=== PATIENT | female | born 1955 | race Caucasian/White ===

== ENCOUNTER 2025-08-26 20:30 | Observation (INO) ==
[2025-08-26 20:57] VITALS: BMI 22.8
--- NOTE | 2025-08-26 21:15 | DR.GENAD ---
HPI Time Seen Time Seen by Provider: 08/26/25 21:11 PCP Primary Care Physician: Dr. Avila Complaint/Symptoms Chief Complaint Doctors Comments: 69-year-old female to ED from home POV. Patient says she does not feel right believes it is her blood thinners she was started prasugrel 10 mg approximately 3 weeks ago. Complaints of dizziness weakness somnolence. Patient says she does not know if she has had a syncopal episode. She states she was washing the [employer] game and all of a sudden it was over. She has been feeling weak and confused Chief Complaint:: Patient brought in er via WC with complaints of experiencing "blood thinner symptoms" x3 weeks. Pt states she started Prasugrel 10mg daily 1 month ago. pt states since starting the blood thinner she has been cold, sleeping all day and having imbalance issues. COVID-19 Coronavirus risk:travel/contact w/high risk person: No Has patient experienced Coronavirus symptoms: No Source History Provided: Patient Mode of Arrival Mode of Arrival: Wheelchair Timing Onset of Chief Complaint: 08/12/25 PMH PMH Past Medical History: Yes Past Medical History: Arthritis, COPD, Diabetes, Dyslipidemia and Hypothyroidism Past Medical History Comment: Neuropathy Past Surgical History: Yes Surgical History: Appendectomy Past Surgical History Comment: Tubal ligation, back surgery Family History History of Family Medical Conditions: Yes Family Medical History: Diabetes Mellitus, Cancer, [place], Coronary Artery Disease and Hypertension Social History Does patient currently use any type of tobacco product: Yes Have you used tobacco products in the last 12 months: Yes Type of Tobacco Use: Cigarettes Does any household member use tobacco: Yes Alcohol Use: None Do you use any recreational Drugs:: No Lives With: Spouse Lives Where: Home Travel Risk Coronavirus risk:travel/contact w/high risk person: No Has patient experienced Coronavirus symptoms: No Infectious screening Have you traveled outside the country in the last 6 months?: No Isolation: Standard ROS Review of Systems Constitutional: No Symptoms Reported Eyes: No Symptoms Reported ENTM: No Symptoms Reported Respiratoy: No Symptoms Reported Cardiovascular: No Symptoms Reported Gastrointestinal/Abdominal: No Symptoms Reported Genitourinary: No Symptoms Reported Neurological: Weakness, Dizziness and Other (Somnolence) Musculoskeletal: No Symptoms Reported Integumentary: No Symptoms Reported Hematologic/Lymphatic: No Symptoms Reported Endocrine: No Symptoms Reported Psychiatric: No Symptoms Reported All Other Systems: Reviewed and Negative PE Vital Signs Vitals: Vital Signs Temperature 98.0 F Pulse Rate 107 Respiratory Rate 20 Blood Pressure 112/59 O2 Sat by Pulse Oximetry 94 General Limitations: No Limitations General Appearance: Alert and In No Apparent Distress Head Head Exam: Normal Inspection Eyes Eye exam: Normal Appearance ENT ENT Exam: Normal Exam External Ear Exam: Normal External Inspection TM/Canal Exam: Bilateral: Normal Nose Exam: Normal Nose Exam Mouth Exam: Normal Inspection Throat Exam: Normal Inspection Neck Neck Exam: Normal Inspection Chest Chest Inspection: Normal Inspection Respiratory Respiratory Exam: Normal Lung Sounds Bilat Respiratory Exam: Bilateral: Clear to Auscultation Cardiovascular Cardiovascular Exam: Regular Rate and Normal Rhythm Abdominal Exam Abdominal Exam: Normal Inspection, Normal Bowel Sounds and Soft Extremities Extremities Exam: Normal Inspection Back Back Exam: Normal Inspection Neurologic Neurological Exam: Alert and Oriented X3 Psychiatric Psychiatric Exam: Normal Affect and Normal Mood Skin Skin Exam: Warm, Dry, Intact and Normal Color COURSE Treatment Treatment: Discussed findings with patient and family. Agreed to admission discussed with Dr. Burnett Will admit ROR Labs Reviewed 08/26/25 21:24 08/26/25 21:24 Laboratory: WBC 8.7 X10^3/uL (3.6-10.0) 08/26/25 21:24 RBC 3.90 X10^6/uL (3.5-5.4) 08/26/25 21:24 Hgb 8.9 g/dL (12.0-16.0) L 08/26/25 21:24 Hct 27.8 % (36.0-47.0) L 08/26/25 21:24 MCV 71.4 fL (80.0-100.0) L 08/26/25 21:24 MCH 22.9 pg (27.0-34.0) L 08/26/25 21:24 MCHC 32.0 g/dL (33.0-35.0) L 08/26/25 21:24 RDW 18.3 % (11.6-16.5) H 08/26/25 21:24 Plt Count 422 X10^3/uL (150.0-450.0) 08/26/25 21:24 MPV 6.6 fL (7.4-11.0) L 08/26/25 21:24 Neut % (Auto) 71.6 % (42.0-75.0) 08/26/25 21:24 Lymph % (Auto) 15.3 % (21.0-51.0) L 08/26/25 21:24 [place] % (Auto) 12.3 % (0.0-13.0) 08/26/25 21:24 Eos % (Auto) 0.1 % (0.9-2.9) L 08/26/25 21:24 Baso % (Auto) 0.7 % (0.2-1.0) 08/26/25 21:24 Neut # (Auto) 6.3 x10^3/uL (2.2-4.8) H 08/26/25 21:24 Lymph # (Auto) 1.3 X10^3/uL (1.3-2.9) 08/26/25 21:24 [place] # (Auto) 1.1 x10^3/uL (0.3-0.8) H 08/26/25 21:24 Eos # (Auto) 0.0 x10^3/uL (0.0-0.2) 08/26/25 21:24 Baso # (Auto) 0.1 X10^3/uL (0.0-0.1) 08/26/25 21:24 Absolute Nucleated RBC 0.2 /100WBC 08/26/25 21:24 PT 14.0 SECONDS (11.8-14.3) 08/26/25 21:24 INR Target Range - 08/26/25 21:24 INR 1.06 (0.8-1.3) 08/26/25 21:24 APTT 33.4 SECONDS (22.9-36.5) 08/26/25 21:24 PTT Comment - 08/26/25 21:24 Sodium 128 mmol/L (136-145) L 08/26/25 21:24 Corrected Sodium TNP 08/26/25 21:24 Potassium 3.1 mmol/L (3.5-5.1) L 08/26/25 21:24 Chloride 90 mmol/L (98-107) L 08/26/25 21:24 Carbon Dioxide 28.6 mmol/L (21-32) 08/26/25 21:24 BUN 7 mg/dL (7-18) 08/26/25 21:24 Creatinine 0.86 mg/dL (0.55-1.02) 08/26/25 21:24 Est GFR (MDRD) Af Amer > 60 (>60) 08/26/25 21:24 Est GFR (MDRD) Non-Af > 60 (>60) 08/26/25 21:24 Glucose 102 mg/dL (65-99) H 08/26/25 21:24 Calcium 8.9 mg/dL (8.5-10.1) 08/26/25 21:24 Corrected Calcium 9.7 mg/dL (8.5-10.1) 08/26/25 21:24 Total Bilirubin 0.40 mg/dL (0.2-1.0) 08/26/25 21:24 AST 16 Units/L (15-37) 08/26/25 21:24 ALT 11 Units/L (12-78) L 08/26/25 21:24 Alkaline Phosphatase 114 Units/L (46-116) 08/26/25 21:24 Troponin I High Sens 21.9 ng/L (4.0-60.0) 08/26/25 21:24 Total Protein 7.0 g/dL (6.4-8.2) 08/26/25 21:24 Albumin 3.0 g/dL (3.4-5.0) L 08/26/25 21:24 Globulin 4.0 g/dL (2.5-4.5) 08/26/25 21:24 Albumin/Globulin Ratio 0.8 Ratio (1.1-2.1) L 08/26/25 21:24 Specimen Type Clean catch urine 08/26/25 21:47 Urine Color Yellow (YELLOW) 08/26/25 21:47 Urine Appearance Cloudy (CLEAR) 08/26/25 21:47 Urine pH 5.0 (5.0 - 8.0) 08/26/25 21:47 Ur Specific [place] 1.015 (1.000-1.030) 08/26/25 21:47 Urine Protein 2+ (NEGATIVE) 08/26/25 21:47 Urine Glucose (UA) Negative (NEGATIVE) 08/26/25 21:47 Urine Ketones Negative (NEGATIVE) 08/26/25 21: Urine Blood Negative (NEGATIVE) 08/26/25 21: Urine Nitrite Negative (NEGATIVE) 08/26/25 21:47 Urine Bilirubin Negative (NEGATIVE) 08/26/25 21:47 Urine Urobilinogen Normal (NORMAL) 08/26/25 21:47 Ur Leukocyte Esterase 2+ (NEGATIVE) 08/26/25 21:47 Urine RBC 3-5 /HPF (0-3) A 08/26/25 21:47 Urine WBC 10-20 /HPF (0-5) A 08/26/25 21:47 Ur Squamous Epith Cells Moderate /HPF (NEGATIVE) 08/26/25 21:47 Urine Bacteria 3+ /HPF (NEGATIVE) 08/26/25 21:47 Ur Culture Indicated? Yes/culture set up 08/26/25 21:47 Urine Opiates Screen Negative (NEG=<300) 08/26/25 21:47 Urine Methadone Screen Negative (NEG=<300) 08/26/25 21:47 Ur Barbiturates Screen Negative (NEG=<200) 08/26/25 21:47 Ur Phencyclidine Scrn Negative (NEG=<25) 08/26/25 21:47 Ur Amphetamines Screen Negative (NEG=<1000) 08/26/25 21:47 U Benzodiazepines Scrn Negative (NEG=<200) 08/26/25 21:47 Urine Cocaine Screen Negative (NEG=<300) 08/26/25 21:47 U Marijuana (THC) Screen Negative (NEG=<50) 08/26/25 21:47 XRAY X-ray Results: AUSTIN [id number] Allergy/Adv: Penicillins Name: AUSTIN TONY : 1955 Sex: F Location: Order Number(s): [id number] Procedure(s):BRAIN CT W/O CON Ordering Physician: Everardo Saba Primary Care: VAMSHI AVILA Service Date: 08/26/25 Service Time: 2114 EXAM: CT HEAD WITHOUT CONTRAST HISTORY: Confusion; COMPARISON: CT dated August 09, 2022. TECHNIQUE: Axial CT images were obtained through the brain without contrast. Coronal and sagittal reformations were performed. All CT scans at this facility use dose modulation, iterative reconstruction, and/or weight based dosing when appropriate to reduce radiation dose to as low as reasonably achievable. FINDINGS: BRAIN: No evidence for acute bleed. Wilkes-white matter differentiation is preserved.Decreased attenuation within periventricular white matter and centrum semiovale is nonspecific but would be consistent with chronic small-vessel ischemic changes. Ventricles have normal size and contour. No shift of midline structures. Basilar cisterns are preserved. No cerebellar tonsillar ectopia. No evidence for acute calvarial findings. MASTOID AIR CELLS: Visualized mastoid air cells are well aerated. PARANASAL SINUSES: Visualized portions of the paranasal sinuses are well aerated. ORBITS: No evidence for acute findings. IMPRESSION: No evidence for acute intracranial pathology. Decreased attenuation within periventricular white matter and centrum semiovale is nonspecific but would be consistent with chronic small-vessel ischemic changes. If there is clinical concern for acute ischemic event or other intracranial pathology, then consider follow-up MRI brain. THIS IS AN ELECTRONICALLY VERIFIED FINAL REPORT 08/26/2025 9:49 PM - Electronically signed by Maicol Escalante DO Opioid Opioid Risk Tool Age (David box if 16-45): No History of Preadolescent Sexual Abuse: No Total: 0 Total Score Risk Category: Low Risk Copyright: Bill SHEEHAN predicting aberrant behaviors Discharge Plan Diagnosis Discharge Problem: Weakness, Hyponatremia, Anemia Discharge Plan Patient Disposition: ADMITTED INPATIENT Condition: Stable Prescriptions: No Action cyclobenzaprine 10 mg tablet 10 mg PO TID metformin 500 mg tablet 500 mg PO TID bupropion HCl 150 mg tablet sustained-release 12 hr 150 mg PO BID citalopram 40 mg tablet 40 mg PO QDAY meloxicam 15 mg tablet 15 mg PO QDAY gabapentin 400 mg capsule 800 mg PO QID famotidine 20 mg tablet 20 mg PO BID oxycodone-acetaminophen 10-325 mg tablet 1 tab PO QID PRN levothyroxine 50 mcg tablet 50 mcg PO QDAY simvastatin 20 mg tablet 20 mg PO QPM trazodone 150 mg tablet 150 mg PO QPM glimepiride 4 mg tablet 4 mg PO QDAY montelukast 10 mg tablet 10 mg PO QDAY sulfamethoxazole-trimethoprim [Bactrim DS] 800-160 mg tablet 1 tab PO BID Qty: 20 0RF Health Concerns: Post Hospitalization: new medications and changes needed to prevent readmission or further decline. Pt educated and given instructions on all concerns. Plan of Treatment: Continue with present treatment and follow up plan. Pt is to keep follow up appointment as instructed and take medications as ordered. Follow ups/Referrals Follow ups/Referrals: VAMSHI AVILA [Primary Care Provider, Unknown] - 3 days Instructions Print Language: SURINAMESE
[2025-08-26 21:32] LABS: MEAN PLATELET VOLUME 6.6 fL (7.4-11.0); RED CELL DISTRIBUTION WIDTH 18.3 % (11.6-16.5)
[2025-08-26 21:38] LABS: INR 1.06 (0.8-1.3)
[2025-08-26 21:46] LABS: COR CA(FOR HYPOALB) 9.7 mg/dL (8.5-10.1); CREATININE 0.86 mg/dL (0.55-1.02); eGFR NON BLACK RACES > 60 (>60)
--- NOTE | 2025-08-26 21:52 | CT ---
EXAM: CT HEAD WITHOUT CONTRAST HISTORY: Confusion; COMPARISON: CT dated August 09, 2022. TECHNIQUE: Axial CT images were obtained through the brain without contrast. Coronal and sagittal reformations were performed. All CT scans at this facility use dose modulation, iterative reconstruction, and/or weight based dosing when appropriate to reduce radiation dose to as low as reasonably achievable. FINDINGS: BRAIN: No evidence for acute bleed. Wilkes-white matter differentiation is preserved.Decreased attenuation within periventricular white matter and centrum semiovale is nonspecific but would be consistent with chronic small-vessel ischemic changes. Ventricles have normal size and contour. No shift of midline structures. Basilar cisterns are preserved. No cerebellar tonsillar ectopia. No evidence for acute calvarial findings. MASTOID AIR CELLS: Visualized mastoid air cells are well aerated. PARANASAL SINUSES: Visualized portions of the paranasal sinuses are well aerated. ORBITS: No evidence for acute findings. IMPRESSION: No evidence for acute intracranial pathology. Decreased attenuation within periventricular white matter and centrum semiovale is nonspecific but would be consistent with chronic small-vessel ischemic changes. If there is clinical concern for acute ischemic event or other intracranial pathology, then consider follow-up MRI brain. THIS IS AN ELECTRONICALLY VERIFIED FINAL REPORT 08/26/2025 9:49 PM - Electronically signed by Maicol Escalante DO
[2025-08-26 21:56] LABS: BLOOD/HEMOGLOBIN,URINE NEGATIVE (NEGATIVE); LEUKOCYTE ESTERASE ,URINE 2+ (NEGATIVE); NITRITES,URINE NEGATIVE (NEGATIVE)
[2025-08-26 21:59] LABS: APPEARANCE,URINE CLOUDY (CLEAR)
[2025-08-26 22:03] LABS: SQUAMOUS EPITHELIAL CELL,UR MODERATE /HPF (NEGATIVE)
[2025-08-26] MEDS: LEVAQUIN PREMIX IV 750 MG 750 MG/150 ML BAG IV ONE (22:45)
[2025-08-26] MEDS ORDERED: ULTRAM PO PRN (23:17)
[2025-08-26] MEDS ORDERED: TYLENOL 325 MG TAB PO PRN (23:17)
[2025-08-26] MEDS: CONSULT PHARMACY - POTASSIUM & MAGNESIUM XX SCH (23:19)
[2025-08-26] MEDS: NS 1,000 ML IV 1,000 ML IV SCH (23:59)
[2025-08-27] MEDS: NS 1,000 ML IV 1,000 ML ONE (00:24)
[2025-08-27] MEDS: K-DUR TAB 20 MEQ PO SCH ×2 (01:12→10:19)
[2025-08-27] MEDS: MAG-OX TAB PO SCH ×2 (01:12→10:19)
[2025-08-27 04:53] LABS: MEAN PLATELET VOLUME 6.9 fL (7.4-11.0); RED CELL DISTRIBUTION WIDTH 18.7 % (11.6-16.5)
[2025-08-27] MEDS: FLEXERIL TAB 10 MG PO SCH (05:09)
[2025-08-27] MEDS: GLUCOPHAGE PO SCH (05:09)
[2025-08-27 05:13] LABS: COR CA(FOR HYPOALB) 9.7 mg/dL (8.5-10.1); CREATININE 0.73 mg/dL (0.55-1.02); eGFR NON BLACK RACES > 60 (>60)
[2025-08-27] MEDS: GLUCOPHAGE ONE ×2 (05:30→21:57)
[2025-08-27] MEDS: CONSULT PHARMACY - POTASSIUM & MAGNESIUM XX SCH (05:30)
[2025-08-27] MEDS: AMARYL TAB 4 MG PO SCH (08:40)
[2025-08-27] MEDS: NEURONTIN CAP 400 MG PO SCH ×2 (08:40→13:40)
[2025-08-27] MEDS: LEVAQUIN PREMIX IV 500 MG 500 MG/100 ML BAG IV SCH (10:20)
--- NOTE | 2025-08-27 11:12 | DR.H&P ---
H&P History & Physical for Day of: H&P Date: 08/27/25 Chief Complaint Chief Complaint: confusion, weakness History of Present Illness History of Present Illness: Patient is a 69-year-old female with a past medical history of CAD status post stenting, COPD, hypertension, hyperlipidemia, type 2 diabetes presented with generalized weakness and confusion. Patient recently had cardiac stent placed over a month ago. She has been taking prasugrel and felt like she was having side effects related to the medication. She denies any active bleeding. ER workup included CT brain which was negative for acute changes. Troponin x 2 were negative. Labs did show hyponatremia and hypokalemia. She was treated with hydration. UA was consistent with infection, she was started on IV antibiotics. She reports feeling better today. Her hemoglobin did drop to 8.1. Labs/imaging reviewed: - WBC 6.5 hemoglobin 8.1 platelet 344 potassium 3.4 creatinine 0.73 magnesium 1.8 - CT brain reviewed - Urine culture pending Plan: Admit to [facility]. Continue IV Levaquin and hydration. Replace electrolytes as per protocol. Resume home medications. Check anemia panel, stool occult. Repeat hemoglobin at 12 PM. If remains below 8 then consider transfusion. PT/OT as tolerated. Monitor AM labs/imaging. Time spent for clinical assessment, reviewing labs/imaging, physical exam, decision making and documentation greater than 45 mins. Past Medical History Past Medical History: Arthritis, COPD, Diabetes, Dyslipidemia and Hypothyroidism Past Surgical History Surgical History: Angioplasty/Stents and Appendectomy Family History Family Medical History: Diabetes Mellitus, Cancer, [place], Coronary Artery Disease and Hypertension Social History Does patient currently use any type of tobacco product: Yes Have you used tobacco products in the last 12 months: Yes Type of Tobacco Use: Cigarettes Does any household member use tobacco: Yes Alcohol Use: None Drug Use: None Medications Home Medications: Home Medications Medication Instructions Recorded Confirmed Type bupropion HCl 150 mg tablet,12 hr 150 mg PO BID 08/27/25 History sustained-release citalopram 40 mg tablet 40 mg PO QDAY 08/09/2208/27 History cyclobenzaprine 10 mg tablet 10 mg PO TID 08/09/2204/16 History glimepiride 4 mg tablet 4 mg PO QDAY 08/09/22 History trazodone 150 mg tablet 150 mg PO QPM 08/09/2208/27 History gabapentin 400 mg capsule 800 mg PO QID 08/27/2508/27 History levothyroxine 50 mcg tablet 50 mcg PO QDAY 08/27/25 History meloxicam 15 mg tablet 15 mg PO QDAY 08/27/2508/27 History metformin 500 mg tablet 500 mg PO QDAY 08/27/2504/16 History montelukast 10 mg tablet 10 mg PO QDAY 08/27/2508/27 History oxycodone-acetaminophen 10 mg-325 1 tab PO QID PRN 04/1608/27/25 History mg tablet prasugrel HCl 10 mg tablet 10 mg PO QDAY 08/27/2504/16 History tirzepatide 2.5 mg/0.5 mL 2.5 mg subcut QWEEK 08/27/25 08/27/25 History subcutaneous pen injector (Nataly) Allergies Allergies Allergy/AdvReac Type Severity Reaction Status Date / Time Penicillins Allergy Verified 08/09/22 11:25 Labs 08/27/25 03:50 08/27/25 03:50 Labs: Laboratory WBC 6.5 X10^3/uL (3.6-10.0) 08/27/25 03:50 RBC 3.45 X10^6/uL (3.5-5.4) L 08/27/25 03:50 Hgb 8.1 g/dL (12.0-16.0) L 08/27/25 03:50 Hct 24.9 % (36.0-47.0) L 08/27/25 03:50 MCV 72.3 fL (80.0-100.0) L 08/27/25 03:50 MCH 23.4 pg (27.0-34.0) L 08/27/25 03:50 MCHC 32.4 g/dL (33.0-35.0) L 08/27/25 03:50 RDW 18.7 % (11.6-16.5) H 08/27/25 03:50 Plt Count 348 X10^3/uL (150.0-450.0) 08/27/25 03:50 MPV 6.9 fL (7.4-11.0) L 08/27/25 03:50 Neut % (Auto) 66.9 % (42.0-75.0) 08/27/25 03:50 Lymph % (Auto) 17.2 % (21.0-51.0) L 08/27/25 03:50 [place] % (Auto) 15.2 % (0.0-13.0) H 08/27/25 03:50 Eos % (Auto) 0.4 % (0.9-2.9) L 08/27/25 03:50 Baso % (Auto) 0.3 % (0.2-1.0) 08/27/25 03:50 Neut # (Auto) 4.4 x10^3/uL (2.2-4.8) 08/27/25 03:50 Lymph # (Auto) 1.1 X10^3/uL (1.3-2.9) L 08/27/25 03:50 [place] # (Auto) 1.0 x10^3/uL (0.3-0.8) H 08/27/25 03:50 Eos # (Auto) 0.0 x10^3/uL (0.0-0.2) 08/27/25 03:50 Baso # (Auto) 0.0 X10^3/uL (0.0-0.1) 08/27/25 03:50 Absolute Nucleated RBC 0.1 /100WBC 08/27/25 03:50 PT 14.0 SECONDS (11.8-14.3) 08/26/25 21:24 INR Target Range - 08/26/25 21:24 INR 1.06 (0.8-1.3) 08/26/25 21:24 APTT 33.4 SECONDS (22.9-36.5) 08/26/25 21:24 PTT Comment - 08/26/25 21:24 Sodium 130 mmol/L (136-145) L 08/27/25 03:50 Corrected Sodium TNP 08/27/25 03:50 Potassium 3.4 mmol/L (3.5-5.1) L 08/27/25 03:50 Chloride 92 mmol/L (98-107) L 08/27/25 03:50 Carbon Dioxide 30.3 mmol/L (21-32) 08/27/25 03:50 BUN 6 mg/dL (7-18) L 08/27/25 03:50 Creatinine 0.73 mg/dL (0.55-1.02) 08/27/25 03:50 Est GFR (MDRD) Af Amer > 60 (>60) 08/27/25 03:50 Est GFR (MDRD) Non-Af > 60 (>60) 08/27/25 03:50 Glucose 98 mg/dL (65-99) 08/27/25 03:50 POC Glucose (mg/dL) 110 mg/dL (65-99) H 08/27/25 05:15 Calcium 8.7 mg/dL (8.5-10.1) 08/27/25 03:50 Corrected Calcium 9.7 mg/dL (8.5-10.1) 08/27/25 03:50 Magnesium 1.8 mg/dL (2.0-2.9) L 08/27/25 03:50 Total Bilirubin 0.20 mg/dL (0.2-1.0) 08/27/25 03:50 AST 14 Units/L (15-37) L 08/27/25 03:50 ALT 14 Units/L (12-78) 08/27/25 03:50 Alkaline Phosphatase 100 Units/L (46-116) 08/27/25 03:50 Troponin I High Sens 16.2 ng/L (4.0-60.0) 08/27/25 03:50 Total Protein 6.6 g/dL (6.4-8.2) 08/27/25 03:50 Albumin 2.7 g/dL (3.4-5.0) L 08/27/25 03:50 Globulin 3.9 g/dL (2.5-4.5) 08/27/25 03:50 Albumin/Globulin Ratio 0.7 Ratio (1.1-2.1) L 08/27/25 03:50 Specimen Type Clean catch urine 08/26/25 21:47 Urine Color Yellow (YELLOW) 08/26/25 21:47 Urine Appearance Cloudy (CLEAR) 08/26/25 21:47 Urine pH 5.0 (5.0 - 8.0) 08/26/25 21:47 Ur Specific [place] 1.015 (1.000-1.030) 08/26/25 21:47 Urine Protein 2+ (NEGATIVE) 08/26/25 21:47 Urine Glucose (UA) Negative (NEGATIVE) 08/26/25 21:47 Urine Ketones Negative (NEGATIVE) 08/26/25 21:47 Urine Blood Negative (NEGATIVE) 08/26/25 21:47 Urine Nitrite Negative (NEGATIVE) 08/26/25 21:47 Urine Bilirubin Negative (NEGATIVE) 08/26/25 21:47 Urine Urobilinogen Normal (NORMAL) 08/26/25 21:47 Ur Leukocyte Esterase 2+ (NEGATIVE) 08/26/25 21:47 Urine RBC 3-5 /HPF (0-3) A 08/26/25 21: Urine WBC 10-20 /HPF (0-5) A 08/26/25 21:47 Ur Squamous Epith Cells Moderate /HPF (NEGATIVE) 08/26/25 21:47 Urine Bacteria 3+ /HPF (NEGATIVE) 08/26/25 21:47 Ur Culture Indicated? Yes/culture set up 08/26/25 21:47 Urine Opiates Screen Negative (NEG=<300) 08/26/25 21:47 Urine Methadone Screen Negative (NEG=<300) 08/26/25 21:47 Ur Barbiturates Screen Negative (NEG=<200) 08/26/25 21:47 Ur Phencyclidine Scrn Negative (NEG=<25) 08/26/25 21:47 Ur Amphetamines Screen Negative (NEG=<1000) 08/26/25 21:47 U Benzodiazepines Scrn Negative (NEG=<200) 08/26/25 21:47 Urine Cocaine Screen Negative (NEG=<300) 08/26/25 21:47 U Marijuana (THC) Screen Negative (NEG=<50) 08/26/25 21:47 Review of Systems Constitutional: Weakness Eyes: No Symptoms Reported ENT: No Symptoms Reported Respiratory: No Symptoms Reported Cardiovascular: No Symptoms Reported Gastrointestinal: No Symptoms Reported Genitourinary: No Symptoms Reported Musculoskeletal: No Symptoms Reported Skin: No Symptoms Reported Neurological: Confusion Physical Exam Vital Signs: Vital Signs Temperature 98.1 F Temperature 98.3 F Pulse Rate [Brachial] 90 Pulse Rate [Brachial] 96 Respiratory Rate 19 Respiratory Rate 18 Blood Pressure [Left Arm] 119/62 Blood Pressure [Left Arm] 109/55 O2 Sat by Pulse Oximetry 96 O2 Sat by Pulse Oximetry 96 Oriented: Normal Respiratory: Clear Throughout Auscultation: Bowel Sounds: Normal Palpation: Normal Tenderness: Normal Skin: Normal Musculoskeletal: Normal Psychiatric: Normal Mood Description: Calm Affect: Normal Speech Pattern: Clear and Appropriate Assessment/Plan (1) Hyponatremia: Status: Acute (2) Anemia: Qualifiers: Anemia type: unspecified type Qualified Code(s): D64.9 - Anemia, unspecified Status: Acute (3) Weakness: Status: Acute (4) UTI (urinary tract infection): Qualifiers: Urinary tract infection type: acute cystitis Hematuria presence: w ithout hematuria Qualified Code(s): N30.00 - Acute cystitis without hematuria Status: Acute (5) CAD (coronary artery disease): Status: Chronic (6) Diabetes: Status: Chronic (7) Hypokalemia: Status: Acute (8) Hypomagnesemia: Status: Acute Review H&P Reviewed: Yes Patient was examined?: Yes
[2025-08-27] MEDS: PATIENT'S HOME MEDICATION (Prasugrel Hcl 10 mg tablet) PO SCH (14:35)
[2025-08-27] MEDS: WELLBUTRIN SR 150 MG (BID) PO SCH (14:47)
[2025-08-27] MEDS: CELEXA PO SCH (14:47)
[2025-08-27] MEDS ORDERED: D50W ABBOJECT SYR ONE ×2 (16:14→20:29)
[2025-08-27] MEDS: D50W ABBOJECT SYR IV ONE ×2 (16:26→20:32)
[2025-08-27] MEDS: NORCO 5/325 MG TAB PO PRN (16:28)
[2025-08-27] MEDS: DESYREL PO SCH (20:58)
[2025-08-27] MEDS: SNACK - Diabetic Appropriate PO SCH (21:38)
[2025-08-28] MEDS ORDERED: D50W ABBOJECT SYR ONE (05:25)
[2025-08-28] MEDS: D50W ABBOJECT SYR IV ONE (05:30)
[2025-08-28 05:36] LABS: MEAN PLATELET VOLUME 6.7 fL (7.4-11.0); RED CELL DISTRIBUTION WIDTH 19.1 % (11.6-16.5)
[2025-08-28 05:48] LABS: PLATELET MORPHOLOGY COMMENT NORMAL (NORMAL)
[2025-08-28 05:55] LABS: COR CA(FOR HYPOALB) 9.4 mg/dL (8.5-10.1); CREATININE 0.64 mg/dL (0.55-1.02); eGFR NON BLACK RACES > 60 (>60)
[2025-08-28] MEDS ORDERED: CONSULT PHARMACY - POTASSIUM & MAGNESIUM XX SCH (07:00)
[2025-08-28] MEDS: D5 NS 1,000 ML IV 1,000 ML IV SCH (07:09)
[2025-08-28] MEDS: PLAVIX PO SCH (08:17)
[2025-08-28] MEDS: MAG-OX TAB PO SCH (08:21)
[2025-08-28] MEDS: NS 500 ML IV 500 ML IV ONE (09:56)
--- NOTE | 2025-08-28 10:11 | PCM.PROG ---
Progress Note Progress Note for Day of Date of Exam: 08/28/25 Subjective Subjective: Patient seen at bedside, overnight patient did have low blood sugars. The lowest sugar was 37, improved with eating and drinking. Her hemoglobin this morning is 7.5. She reports feeling okay. She reports she has been eating her meals. Metformin was held yesterday. Labs/imaging reviewed: - WBC 5.1 hemoglobin 7.5 platelet 327 creatinine 0.64 potassium 4.4 glucose 101 - Iron studies reviewed -Urine culture gram-negative rods Plan: Change fluids to NS plus D5. Monitor glucose. Continue to hold metformin. Transfuse 2 units PRBCs, monitor hemoglobin. Continue IV antibiotics. Follow pending cultures. Continue other home medications. Replace electrolytes as per protocol. Monitor a.m. labs and imaging. Time spent for clinical assessment, reviewing labs/imaging, physical exam, decision making and documentation greater than 45 mins. Past Medical Family Social History Allergies: Allergies Penicillins Allergy (Verified 08/09/22 11:25) Vital Signs and I&O's Vital Signs: Vital Signs Temperature 98.8 F Temperature 99.5 F Pulse Rate [Brachial] 97 Pulse Rate [Brachial] 117 Respiratory Rate 19 Respiratory Rate 18 Respiratory Rate 17 Respiratory Rate 18 Blood Pressure [Left Arm] 137/65 Blood Pressure [Left Arm] 138/64 O2 Sat by Pulse Oximetry 95 O2 Sat by Pulse Oximetry 92 Intake and Output: Intake & Output 08/25/25 08/26/25 08/27/25 08/28/25 23:59 23:59 23:59 23:59 Intake Total 2900 / 2900 996 / 996 Balance 2900 / 2900 996 / 996 Physical Exam Oriented: Normal Respiratory: Normal Cardiovascular: Normal Auscultation: Bowel Sounds: Normal Tenderness: Normal Skin: Normal Musculoskeletal: Normal Psychiatric: Normal Mood Description: Calm Affect: Normal Speech Pattern: Clear and Appropriate Laboratory and Diagnostics 08/28/25 05:17 08/28/25 05:17 Labs: 08/26/25 21:47 Urine,Clean Catch Urine Culture - Preliminary Laboratory WBC 5.1 X10^3/uL (3.6-10.0) 08/28/25 05:17 RBC 3.17 X10^6/uL (3.5-5.4) L 08/28/25 05:17 Hgb 7.5 g/dL (12.0-16.0) L 08/28/25 05:17 Hct 23.2 % (36.0-47.0) L 08/28/25 05:17 MCV 73.2 fL (80.0-100.0) L 08/28/25 05:17 MCH 23.6 pg (27.0-34.0) L 08/28/25 05:17 MCHC 32.2 g/dL (33.0-35.0) L 08/28/25 05:17 RDW 19.1 % (11.6-16.5) H 08/28/25 05:17 Plt Count 327 X10^3/uL (150.0-450.0) 08/28/25 05:17 Plt Count Comment Adequate (ADEQUATE) 08/28/25 05:17 MPV 6.7 fL (7.4-11.0) L 08/28/25 05:17 Neut % (Auto) 70.6 % (42.0-75.0) 08/28/25 05:17 Lymph % (Auto) 17.0 % (21.0-51.0) L 08/28/25 05:17 [place] % (Auto) 11.7 % (0.0-13.0) 08/28/25 05:17 Eos % (Auto) 0.4 % (0.9-2.9) L 08/28/25 05:17 Baso % (Auto) 0.3 % (0.2-1.0) 08/28/25 05:17 Neut # (Auto) 3.6 x10^3/uL (2.2-4.8) 08/28/25 05:17 Lymph # (Auto) 0.9 X10^3/uL (1.3-2.9) L 08/28/25 05:17 [place] # (Auto) 0.6 x10^3/uL (0.3-0.8) 08/28/25 05:17 Eos # (Auto) 0.0 x10^3/uL (0.0-0.2) 08/28/25 05:17 Baso # (Auto) 0.0 X10^3/uL (0.0-0.1) 08/28/25 05:17 Absolute Nucleated RBC 0.1 /100WBC 08/28/25 05:17 Plt Morphology Comment Normal (NORMAL) 08/28/25 05:17 RBC Morphology Abnormal (NORMAL) A 08/28/25 05:17 Hypochromasia 1+ A 08/28/25 05:17 Anisocytosis Slight A 08/28/25 05:17 Microcytosis Slight A 08/28/25 05:17 PT 14.0 SECONDS (11.8-14.3) 08/26/25 21:24 INR Target Range - 08/26/25 21:24 INR 1.06 (0.8-1.3) 08/26/25 21:24 APTT 33.4 SECONDS (22.9-36.5) 08/26/25 21:24 PTT Comment - 08/26/25 21:24 Sodium 137 mmol/L (136-145) 08/28/25 05:17 Corrected Sodium TNP 08/28/25 05:17 Potassium 4.4 mmol/L (3.5-5.1) 08/28/25 05:17 Chloride 102 mmol/L (98-107) 08/28/25 05:17 Carbon Dioxide 27.9 mmol/L (21-32) 08/28/25 05:17 BUN 3 mg/dL (7-18) L 08/28/25 05:17 Creatinine 0.64 mg/dL (0.55-1.02) 08/28/25 05:17 Est GFR (MDRD) Af Amer > 60 (>60) 08/28/25 05:17 Est GFR (MDRD) Non-Af > 60 (>60) 08/28/25 05:17 Glucose 59 mg/dL (65-99) L 08/28/25 05:17 POC Glucose (mg/dL) 101 mg/dL (65-99) H 08/28/25 06:23 Calcium 8.2 mg/dL (8.5-10.1) L 08/28/25 05:17 Corrected Calcium 9.4 mg/dL (8.5-10.1) 08/28/25 05:17 Magnesium 1.9 mg/dL (2.0-2.9) L 08/28/25 05:17 Iron 12 ug/dL (50-175) L 08/27/25 11:50 TIBC 344 ug/dL (250-450) 08/27/25 11:50 % Saturation 3.5 % (11.0-46.0) L 08/27/25 11:50 Ferritin 18 ng/mL (8-252) 08/27/25 11:50 Total Bilirubin 0.10 mg/dL (0.2-1.0) L 08/28/25 05:17 AST 14 Units/L (15-37) L 08/28/25 05:17 ALT 11 Units/L (12-78) L 08/28/25 05:17 Alkaline Phosphatase 86 Units/L (46-116) 08/28/25 05:17 Troponin I High Sens 16.2 ng/L (4.0-60.0) 08/27/25 03:50 Total Protein 6.1 g/dL (6.4-8.2) L 08/28/25 05:17 Albumin 2.5 g/dL (3.4-5.0) L 08/28/25 05:17 Globulin 3.6 g/dL (2.5-4.5) 08/28/25 05:17 Albumin/Globulin Ratio 0.7 Ratio (1.1-2.1) L 08/28/25 05:17 Specimen Type Clean catch urine 08/26/25 21:47 Urine Color Yellow (YELLOW) 08/26/25 21:47 Urine Appearance Cloudy (CLEAR) 08/26/25 21:47 Urine pH 5.0 (5.0 - 8.0) 08/26/25 21:47 Ur Specific [place] 1.015 (1.000-1.030) 08/26/25 21:47 Urine Protein 2+ (NEGATIVE) 08/26/25 21:47 Urine Glucose (UA) Negative (NEGATIVE) 08/26/25 21:47 Urine Ketones Negative (NEGATIVE) 08/26/25 21:47 Urine Blood Negative (NEGATIVE) 08/26/25 21: Urine Nitrite Negative (NEGATIVE) 08/26/25 21: Urine Bilirubin Negative (NEGATIVE) 08/26/25 21:47 Urine Urobilinogen Normal (NORMAL) 08/26/25 21:47 Ur Leukocyte Esterase 2+ (NEGATIVE) 08/26/25 21:47 Urine RBC 3-5 /HPF (0-3) A 08/26/25 21:47 Urine WBC 10-20 /HPF (0-5) A 10/04/25 21:47 Ur Squamous Epith Cells Moderate /HPF (NEGATIVE) 08/26/25 21:47 Urine Bacteria 3+ /HPF (NEGATIVE) 08/26/25 21:47 Ur Culture Indicated? Yes/culture set up 08/26/25 21:47 Urine Opiates Screen Negative (NEG=<300) 08/26/25 21:47 Urine Methadone Screen Negative (NEG=<300) 08/26/25 21:47 Ur Barbiturates Screen Negative (NEG=<200) 08/26/25 21:47 Ur Phencyclidine Scrn Negative (NEG=<25) 08/26/25 21:47 Ur Amphetamines Screen Negative (NEG=<1000) 08/26/25 21:47 U Benzodiazepines Scrn Negative (NEG=<200) 08/26/25 21:47 Urine Cocaine Screen Negative (NEG=<300) 08/26/25 21:47 U Marijuana (THC) Screen Negative (NEG=<50) 08/26/25 21:47 Blood Type O POSITIVE 08/28/25 06:50 Blood Type O POSITIVE 08/28/25 06:50 Antibody Screen Negative 08/28/25 06:50 Crossmatch See Detail 08/28/25 06:50 Plan (1) Anemia: Status: Acute Qualifiers: Anemia type: unspecified type Qualified Code(s): D64.9 - Anemia, unspecified (2) Hyponatremia: Status: Acute (3) Hypoglycemia: Status: Acute (4) Weakness: Status: Acute (5) UTI (urinary tract infection): Status: Acute Qualifiers: Hematuria presence: without hematuria Urinary tract infection type: a cute cystitis Qualified Code(s): N30.00 - Acute cystitis without hematuria (6) CAD (coronary artery disease): Status: Chronic (7) Diabetes: Status: Chronic (8) Hypokalemia: Status: Acute (9) Hypomagnesemia: Status: Acute
[2025-08-28] MEDS ORDERED: GLUTOSE 15 GEL ORAL PO PRN (11:40)
[2025-08-28] MEDS: GLUTOSE 15 GEL ORAL PO ONE (11:58)
[2025-08-28] MEDS: NS 250 ML IV 250 ML IV ONE (14:06)
[2025-08-28] MEDS: NICOTINE PATCH TD SCH (15:23)
[2025-08-28] MEDS: CATAPRES TAB 0.1 MG PO ONE (17:42)
[2025-08-29 04:26] VITALS: TEMP 98.4
[2025-08-29 05:46] LABS: MEAN PLATELET VOLUME 6.6 fL (7.4-11.0); RED CELL DISTRIBUTION WIDTH 19.8 % (11.6-16.5)
[2025-08-29 06:04] LABS: COR CA(FOR HYPOALB) 9.8 mg/dL (8.5-10.1); CREATININE 0.63 mg/dL (0.55-1.02); eGFR NON BLACK RACES > 60 (>60)
[2025-08-29 07:40] VITALS: BP 133/63; PULSE 83; O2SAT 95
[2025-08-29 09:45] VITALS: RESP 16
[2025-08-29] MEDS: COLACE CAP 100 MG PO SCH (10:00)
[2025-08-29] MEDS: LASIX IVP ONE (11:46)
[2025-08-29] MEDS: VIBRAMYCIN PO SCH (11:54)
== END 2025-08-29 12:45 | disposition home or self-care (01) ==
LOC: ER 20:30 → MED/SURG 20:30
PROVIDERS: ADMIT Internal Medicine; ATTEND Internal Medicine
DX: Z98.890 Other specified postprocedural states; Z95.5 Presence of coronary angioplasty implant and graft; Z16.11 Resistance to penicillins; Z79.1 Long term (current) use of non-steroidal anti-inflammatories (NSAID); I25.10 Atherosclerotic heart disease of native coronary artery without angina pectoris; R53.1 Weakness; J44.9 Chronic obstructive pulmonary disease, unspecified; I10 Essential (primary) hypertension; Z16.29 Resistance to other single specified antibiotic; Z59.868 Other specified financial insecurity; E87.1 Hypo-osmolality and hyponatremia; E11.65 Type 2 diabetes mellitus with hyperglycemia; E03.8 Other specified hypothyroidism; Z72.0 Tobacco use; R42 Dizziness and giddiness; E87.6 Hypokalemia; E83.42 Hypomagnesemia; R26.89 Other abnormalities of gait and mobility; N30.00 Acute cystitis without hematuria; Z16.23 Resistance to quinolones and fluoroquinolones; E78.5 Hyperlipidemia, unspecified; B96.29 Other Escherichia coli [E. coli] as the cause of diseases classified elsewhere; Z16.19 Resistance to other specified beta lactam antibiotics; M19.90 Unspecified osteoarthritis, unspecified site; D64.89 Other specified anemias; Z16.12 Extended spectrum beta lactamase (ESBL) resistance